=== PATIENT | male | born 1990 | race Caucasian/White ===

== ENCOUNTER 2020-06-28 12:47 | Emergency (ER) | payer OTHER, SELFPAY ==
[2020-06-28] VITALS (7 sets, daily range): BP systolic 174–179; BP diastolic 104–120; PULSE 79–94; RESP 14–21; TEMP 37.6; O2SAT 97–100; BMI 34.8
--- NOTE | 2020-06-28 12:53 | DI.RAD.S_ITS ---
PROCEDURE: XR CHEST 1V INDICATIONS: chest pain TECHNIQUE: One view of the chest was acquired. COMPARISON: None. FINDINGS: Surgical changes and devices: None. Lungs and pleura: Lungs are clear. No pleural effusions or pneumothorax. Mediastinum: Mediastinal contours appear normal. Heart size is normal. Bones and chest wall: No suspicious bony lesions. Overlying soft tissues appear unremarkable. IMPRESSION: No acute cardiopulmonary abnormality. Dictated by: Kunal Stevenson M.D. on 06/28/2020 at 13:16 Approved by: Kunal Stevenson M.D. on 06/28/2020 at 13:17
[2020-06-28 13:17] LABS: Add Manual Diff / Slide Review NO; Basophils Absolute Auto 0 /uL (0-100); Basophils Percent Auto 0.5 % (0-2); Eosinophils Absolute Auto 100 /uL (0-450); Eosinophils Percent Auto 1.1 % (2-4); Hematocrit 45.8 % (41-53); Lymphocytes Absolute Auto 1700 /uL (1100-4500); Lymphocytes Percent Auto 21.3 % (25-40); Mean Corpuscular Hemoglobin 29.7 PG (26-34); Mean Corpuscular Volume 84.9 fL (80-100); Monocytes Absolute Auto 500 /uL (0-900); Monocytes Percent Auto 6.6 % (3-14); Neutrophils Absolute Auto 5700 /uL (1500-7000); Neutrophils Percent Auto 70.5 % (50-75); Platelet Count 237 X10^3/uL (150-400); Red Blood Cell Count 5.39 X10^6/uL (4.5-5.9); Red Cell Distribution Width 13.1 % (11.6-14.8); White Blood Cell Count 8.1 X10^3/uL (4.5-11.0)
[2020-06-28 13:30] LABS: Alanine Aminotransferase 43 IU/L (<50); Albumin Globulin Ratio 1.5 (1.0-2.8); Alkaline Phosphatase 91 U/L (38-126); Aspartate Aminotransferase 32 IU/L (17-59); BUN Creatinine Ratio 19.5 (6-22); Bilirubin Total 0.5 mg/dL (0.2-1.3); Blood Urea Nitrogen 16 mg/dL (9-20); Calcium 10.1 mg/dL (8.4-10.2); Carbon Dioxide 22 mmol/L (22-32); Chloride 103 mmol/L (98-107); Creatine Kinase 98 U/L (55-170); Estimated Glomerular Filt Rate > 60.0 mL/min (>60); Globulin 3.4 g/dL (1.7-4.1); Glucose 95 mg/dL (70-100); HEMOLYSIS < 15 (0-50); Lipase 84 U/L (23-300); PTT Partial Thromboplastin Tim 32 SECONDS (26.4-36.2); Potassium 3.9 mmol/L (3.4-5.1); Sodium 137 mmol/L (137-145); Total Protein 8.4 g/dL (6.3-8.2)
[2020-06-28 13:42] LABS: Troponin I < 0.012 ng/mL (0.01-0.034)
--- NOTE | 2020-06-28 13:48 | ED.CHESTPAIN ---
HPI - Chest Pain General Chief Complaint: Chest Pain Stated Complaint: chest pain, started yesterday Time Seen by Provider: 06/28/20 13:13 Source: patient Mode of arrival: Ambulatory Limitations: no limitations History of Present Illness HPI narrative: Patient is a 29-year-old male with a history of hypertension and anxiety here for evaluation of just over 24 hours of left-sided chest discomfort. He states he was at work yesterday when he started to develop the symptoms. He did think that it felt like a muscle spasm. There were times where was new was better than others but has had relatively consistent pain since then. At the time my evaluation he thinks that his symptoms are somewhat better but not completely gone. He does not have shortness of breath. Does not know if his symptoms are worse with touching. He does feel very anxious about the symptoms cause of his history of high blood pressure. Related Data Allergies Allergy/AdvReac Type Severity Reaction Status Date / Time No Known Drug Allergies Allergy Verified 06/28/20 13:11 Review of Systems Constitutional Constitutional: Denies fatigue, Denies fever(s) and Denies headache(s) Eyes Eyes: Denies change in vision ENT Ears, Nose, Mouth, and Throat: Denies headache(s) and Denies sore throat Cardiovascular Cardiovascular: Reports chest pain, Denies syncope, Denies pedal edema, Denies irregular heart rhythm and Denies dyspnea Respiratory Respiratory: Denies cough and Denies dyspnea Gastrointestinal Gastrointestinal: Denies abdominal pain, Denies nausea and Denies vomiting Genitourinary Genitourinary: Denies dysuria Genitourinary: Denies dysuria Musculoskeletal Musculoskeletal: Denies arthralgias and Denies myalgias Integumentary/Breasts Skin/Breast: Denies rash Neurologic Neurologic: Denies behavioral changes, Denies syncope and Denies headache(s) Psychiatric Psychiatric: Denies behavioral changes Endocrine Endocrine: Denies fatigue Hematologic/Lymphatic On Anticoagulants: No Allergic/Immunologic Allergic/Immunologic: Denies urticaria Patient History Medical History Hypertension Social History Smoking Status: Unknown if ever smoked Smoking Status: Unknown if ever smoked alcohol intake frequency: holidays/special occasions only Substance Use Type: does not use Exam Initial Vital Signs Initial Vital Signs: Vital Signs Temperature 99.7 F H 06/28/20 13:06 Pulse Rate 90 06/28/20 13:06 Respiratory Rate 15 06/28/20 13:06 Blood Pressure 174/104 H 06/28/20 13:06 Pulse Oximetry 99 06/28/20 13:06 Const General: cooperative, comfortable and well developed Limitations: mental status not altered HENMT Head: normal to inspection and normocephalic Eyes General: appearance normal, both eyes and all related structures Chest Chest: No crepitus and No tenderness Resp Effort & Inspection: normal respiratory effort Auscultation: clear to auscultation bilaterally Cardio Rate: regular rate Rhythm: regular rhythm GI Inspection: non-distended Palpation: soft Skin Lesions: no lesions Rashes: no rashes Neuro General: patient alert, patient awake and patient oriented x3 Cognition: normal cognition Speech: speech normal Gait: normal gait Extrem General: normal to inspection, capillary refill normal and No edema Psych Mood: anxious mood Scores HEART Score Heart Score history: Slightly Suspicious Heart Score EKG: Normal Heart Score Age: < 45 years old Heart Score risk factors: 1-2 risk factors Heart Score troponin: < or = to normal limit Heart Score Total: 1 Course Orders Ordered: ED Orders 06/28/20 12:49 EKG-12 Lead Stat 06/28/20 12:53 XR chest 1V Stat 06/28/20 13:06 Complete Blood Count AUTO DIFF Stat Comprehensive Metabolic Panel Stat Lipase Stat Partial Thromboplastin Time Stat Prothrombin Time INR Stat Troponin & CK Cardiac Panel Stat Vital Signs Vital signs: Vital Signs - 8 hr 06/28/20 13:06 Temperature 99.7 F H Pulse Rate 90 Respiratory Rate 15 Blood Pressure 174/104 H Pulse Oximetry 99 MDM - Chest Pain Lab Data Attestation: I reviewed the patient's lab results. Result diagrams: 06/28/20 13:06 06/28/20 13:06 Labs: Lab Results 06/28/20 06/28/20 06/28/20 Range/Units 13:06 13:06 13:06 WBC 8.1 (4.5-11.0) X10^3/uL RBC 5.39 (4.5-5.9) X10^6/uL Hgb 16.0 (13.5-17.5) g/dL Hct 45.8 (41-53) % MCV 84.9 (80-100) fL MCH 29.7 (26-34) PG MCHC 35.0 (30-36) % RDW 13.1 (11.6-14.8) % Plt Count 237 (150-400) X10^3/uL Neut % (Auto) 70.5 (50-75) % Lymph % (Auto) 21.3 L (25-40) % Summers % (Auto) 6.6 (3-14) % Eos % (Auto) 1.1 L (2-4) % Baso % (Auto) 0.5 (0-2) % Neut # (Auto) 5700 (0419-7607) /uL Lymph # (Auto) 1700 (8449-6752) /uL Summers # (Auto) 500 (0-900) /uL Eos # (Auto) 100 (0-450) /uL Baso # (Auto) 0 (0-100) /uL PT 12.0 (10.1-12.7) SECONDS INR 1.0 (0.9-1.3) APTT 32 (26.4-36.2) SECONDS Sodium 137 (137-145) mmol/L Potassium 3.9 (3.4-5.1) mmol/L Chloride 103 (98-107) mmol/L Carbon Dioxide 22 (22-32) mmol/L BUN 16 (9-20) mg/dL Creatinine 0.82 (0.66-1.25) mg/dL Estimated GFR > 60.0 (>60) mL/min BUN/Creatinine Ratio 19.5 (6-22) Glucose 95 (70-100) mg/dL Calcium 10.1 (8.4-10.2) mg/dL Total Bilirubin 0.5 (0.2-1.3) mg/dL AST 32 (17-59) IU/L ALT 43 (<50) IU/L Alkaline Phosphatase 91 (38-126) U/L Total Creatine Kinase 98 (55-170) U/L CK-MB (CK-2) TNP CK-MB (CK-2) Rel Index TNP Troponin I < 0.012 (0.01-0.034) ng/mL Total Protein 8.4 H (6.3-8.2) g/dL Albumin 5.0 (3.5-5.0) g/dL Globulin 3.4 (1.7-4.1) g/dL Albumin/Globulin Ratio 1.5 (1.0-2.8) Lipase 84 (23-300) U/L Imaging Data Chest x-ray: Radiologist's Impression: [address] [id number] ReportSigned Patient: Johnny Gonzalez AMR#: [id number]: 1990Acct:[id number]/Sex: MDate of Service: 06/28/20Loc: EDAccession Number: [id number] Procedure: XR chest 1V Ordering Provider: Yee See MD PROCEDURE: XR CHEST 1V INDICATIONS: chest pain TECHNIQUE: One view of the chest was acquired. COMPARISON: None. FINDINGS: Surgical changes and devices: None. Lungs and pleura: Lungs are clear. No pleural effusions or pneumothorax. Mediastinum: Mediastinal contours appear normal. Heart size is normal. Bones and chest wall: No suspicious bony lesions. Overlying soft tissues appear unremarkable. IMPRESSION: No acute cardiopulmonary abnormality. Dictated by: Kunal Stevenson M.D. on 06/28/2020 at 13:16 Approved by: Kunal Stevenson M.D. on 06/28/2020 at 13:17 ECG Data Attestation: I personally reviewed and interpreted this ECG as follows: Prior ECG tracings: not available for review Interpretation: Sinus rhythm Ventricular rate 91 Normal axis Normal QRS Normal QTC No ST T wave changes MDM Narrative Medical decision making narrative: Patient does have a fairly anxious affect. His exam is unremarkable. He is a low risk heart score. EKG is unremarkable. Chest x-ray is unremarkable. Troponin is negative. No skin changes. Have low suspicion for ACS. Low suspicion for GI symptoms. I do think that this is most likely musculoskeletal given his presentation and his exam. He was given return precautions and follow-up instructions. I feel we can hold on further workup for now. He expressed understanding and agreement.
== END 2020-06-28 15:01 | disposition home or self-care (01) ==
PROVIDERS: Emergency Medicine; Emergency Provider Emergency Medicine
DX: R07.89 Other chest pain (principal)
CPT/HCPCS: 36415; 71045; 80053; 82550; 83690; 84484; 85025; 85610; 85730; 93005; 99284